=== PATIENT | male | born 1950 | race Caucasian/White ===

== ENCOUNTER 2016-06-22 06:51 | Emergency (ER) | payer BC, MEDICARE ==
[2016-06-22] MEDS ORDERED: Ibuprofen 400 MG TAB ONE (08:32)
[2016-06-22] MEDS ORDERED: SODIUM CHLORIDE 0.9% 1,000 ML ONE (08:33)
[2016-06-22] MEDS ORDERED: CEFTRIAXONE 1 GM VIAL ONE (08:49)
[2016-06-22] MEDS ORDERED: SODIUM CHLORIDE 0.9% 100 ML IV ONE (08:50)
== END 2016-06-22 10:17 | disposition home or self-care (01) ==
LOC: ER 06:51
DX: N10 Acute pyelonephritis (principal)
CPT/HCPCS: 74022 ×2; 87077 ×2; 87186 ×2; 96361 ×2; 96365 ×2; 99284; J0696